=== PATIENT | female | born 1995 | race Caucasian/White ===

== ENCOUNTER → 2023-10-21 | Day surgery (SDC) | payer OTHER ==
[~2023-10-21] MED LIST: Gadobenate Dimeglumine 2 ML, Sodium Chloride 0.9% 250 ML 10 ML, Iopamidol 8 ML, Lidocai... IV SCH; Sodium Bicarbonate 2.5 MEQ/5 ML SDV ONE
== END ==
LOC: RAD 12:29 → EDSTATUS 13:00
PROVIDERS: ATTEND Emergency Medicine Sports Medicine
PROC: BP0 Imaging, Non-Axial Upper Bones, Plain Radiography (ICD-10-PCS; principal; 2023-10-21)
DX: S63.591A Other specified sprain of right wrist, initial encounter (principal); X58.XXXA Exposure to other specified factors, initial encounter
CPT/HCPCS: 25246; 77002; A9577; J0171; J7050; Q9967